=== PATIENT | male | born 1960 | race Caucasian/White ===

== ENCOUNTER 2023-11-25 21:32 | Emergency (ER) | payer SELFPAY ==
[2023-11-25 21:57] LABS: BASOPHILS ABSOLUTE AUTO 0.02 10^3/uL (0.00-0.10); BASOPHILS PERCENT AUTO 0.3 % (0.0-1.0); EOSINOPHILS ABSOLUTE AUTO 0.21 10^3/uL (0.10-0.30); EOSINOPHILS PERCENT AUTO 2.9 % (1.0-3.0); HEMATOCRIT 34.6 % (40.0-52.0); HEMOGLOBIN 11.8 g/dL (13.0-17.0); IMMATURE GRAN ABSOLUTE AUTO 0.02 10^3/uL (0.00-0.50); IMMATURE GRAN PERCENT AUTO 0.3 % (0.0-5.0); LYMPHOCYTES ABSOLUTE AUTO 1.47 10^3/uL (1.00-4.00); LYMPHOCYTES PERCENT AUTO 20.4 % (20.0-40.0); MEAN CORPUSCULAR HEMOGLOBIN 33.2 pg (27.0-31.0); MEAN CORPUSCULAR HGB CONC 34.1 g/dL (32.0-36.0); MEAN CORPUSCULAR VOLUME 97.5 fL (82.0-92.0); MEAN PLATELET VOLUME 9.3 fL (7.4-10.4); MONOCYTES ABSOLUTE AUTO 0.67 10^3/uL (0.10-0.80); MONOCYTES PERCENT AUTO 9.3 % (2.0-8.0); NEUTROPHILS ABSOLUTE AUTO 4.82 10^3/uL (2.50-7.00); NEUTROPHILS PERCENT AUTO 66.8 % (50.0-70.0); PLATELET COUNT,PLT 216 10^3/uL (150-400); RED BLOOD CELL COUNT 3.55 10^6/uL (4.50-6.00); RED CELL DISTRIBUTION WIDTH 13.5 % (11.5-14.5); WHITE BLOOD CELL COUNT,WBC 7.21 10^3/uL (5.00-10.00)
[2023-11-25 22:14] LABS: ALBUMIN 3.5 g/dL (3.40-5.00); ANION GAP 10.9 mmol/L (5-15); BILIRUBIN TOTAL 0.5 mg/dL (0.2-1.0); CALCIUM 8.9 mg/dL (8.7-10.3); CARBON DIOXIDE,CO2 28.4 mmol/L (21.0-32.0); CREATININE 0.77 mg/dL (0.51-1.17); EST CRCL DRUG DOSING (CG) 103.42 mL/min; POTASSIUM,K 3.3 mmol/L (3.5-5.1); PROTEIN TOTAL,TP 6.6 g/dL (6.4-8.2)
[2023-11-25 22:17] VITALS: BP 130/67; PULSE 58
== END 2023-11-25 22:48 | disposition home or self-care (01) ==
LOC: KA.ED 21:32
DX: R12 Heartburn (principal); F17.220 Nicotine dependence, chewing tobacco, uncomplicated; Z88.0 Allergy status to penicillin
CPT/HCPCS: 80053; 84484; 85025; 93005; 93010; 99284; 99285